=== PATIENT | female | born 1965 | race Caucasian/White ===

== ENCOUNTER 2017-01-01 12:38 | Inpatient (IN) | payer MEDICAID, OTHER ==
[~2017-01-01] VITALS: Ht 162.6 cm; Wt 62.3 kg
[2017-01-01] MEDS ORDERED: BECL8.7A6 IH (13:25)
[2017-01-01] MEDS ORDERED: QUET200T PO (13:25)
[2017-01-01] MEDS ORDERED: NICO21T TD (13:25)
[2017-01-01] MEDS ORDERED: BUPR75 PO (13:25)
[2017-01-01] MEDS ORDERED: FLUT16H NASAL (13:25)
[2017-01-01] MEDS ORDERED: QUET25TA PO (13:25)
[2017-01-01] MEDS ORDERED: ALBU8HFA IH (13:25)
[2017-01-01] MEDS ORDERED: SYMB8060 IH (13:25)
[2017-01-01] MEDS ORDERED: LAMO100 PO (13:25)
[2017-01-01] MEDS ORDERED: TIOT185 IH (13:25)
[2017-01-01] MEDS ORDERED: ALBU8HFA4 IH (13:25)
[2017-01-01] MEDS ORDERED: CLON.5 PO (13:25)
[2017-01-01 13:56] LABS: BASOPHILS % (AUTO) 0.6 % (0.0-2.0); EOSINOPHILS % (AUTO) 11.1 % (1.0-6.0); HEMATOCRIT 39.4 % (36-46); LYMPHOCYTES % (AUTO) 21.5 % (22.0-44.0); MEAN CORPUSCULAR HEMOGLOBIN 29.1 pg (26.0-34.0); MEAN CORPUSCULAR HGB CONC 32.9 G/dL (31.0-37.0); MEAN CORPUSCULAR VOLUME 89 fL (80-100); MONOCYTES # (AUTO) 0.5 K/uL (0.1-1.0); MONOCYTES % (AUTO) 5.7 % (2.0-9.0); NEUTROPHILS # (AUTO) 5.7 K/uL (1.8-7.7); NEUTROPHILS % (AUTO) 61.1 % (40.0-70.0); PLATELET COUNT (AUTO) 277 K/uL (150-450); RED BLOOD CELL COUNT(AUTO) 4.45 MIL/uL (4.00-5.20); RED CELL DISTRIBUTION WIDTH 13.9 % (11.5-14.5); WHITE BLOOD COUNT (AUTO) 9.3 K/uL (4.5-11.0)
[2017-01-01 14:00] LABS: ANION GAP 5 mmol/L (8-16); CARBON DIOXIDE 33 mmol/L (22-29); CHLORIDE 105 mmol/L (98-107); CREATININE 0.69 mg/dL (0.60-1.30); GLOMERULAR FILTR. RATE CALC > 60 mL/min (>60); POTASSIUM 3.8 mmol/L (3.5-5.1); SODIUM SERUM 143 mmol/L (136-145); UREA NITROGEN, BLOOD 14 mg/dL (7-18)
[2017-01-01 14:06] LABS: ALANINE AMINOTRANSFERASE 24 U/L (12-78); ALBUMIN 3.1 g/dL (3.4-5.0); ASPARTATE AMINOTRANSFERASE 20 U/L (15-37); BILIRUBIN,TOTAL 0.2 mg/dL (0.1-1.0); TOTAL PROTEIN, SERUM 6.7 g/dL (6.4-8.2)
[2017-01-01] MEDS ORDERED: MAGNESIUM HYDROXIDE SUSPENSION 30 ML UDCUP PO PRN (14:15)
[2017-01-01] MEDS ORDERED: ZOLPIDEM TARTRATE 10 MG TABLET PO PRN (14:15)
[2017-01-01] MEDS ORDERED: MAG HYDROX/AL HYDROX/SIMETH ES 30 ML SUSPENSION UDCUP PO PRN (14:15)
[2017-01-01] MEDS ORDERED: ACETAMINOPHEN 325 MG TABLET PO PRN (14:15)
[2017-01-01] MEDS ORDERED: LORazepam 2 MG TABLET PO PRN (14:15)
[2017-01-01] MEDS ORDERED: LORazepam 2 MG/ML VIAL IM ONE (20:30)
[2017-01-01] MEDS ORDERED: HALOPERIDOL LACTATE 5 MG/ML VIAL IM ONE (20:30)
[2017-01-01] MEDS ORDERED: DiphenhydrAMINE HCL 50 MG/ML VIAL IM ONE (20:30)
[2017-01-02 01:46] VITALS: BP 130/76
[2017-01-02] MEDS ORDERED: INFLUENZA VIRUS VACCINE QVS 2016-17 (3YR+)/PF 60 MCG/0.5 ML SYRINGE IM ONE (02:30)
[2017-01-02] MEDS ORDERED: PNEUMOCOCCAL VACCINE POLYVALENT 0.5 ML VIAL [PPSV23] IM ONE (02:30)
[2017-01-02] MEDS ORDERED: ALBUTEROL SULFATE HFA 90 MCG/PUFF 8 GM INHALER IH PRN (10:45)
[2017-01-02] MEDS ORDERED: IBUPROFEN 400 MG TABLET PO PRN (10:45)
[2017-01-02] MEDS ORDERED: ACETAMINOPHEN 325 MG TABLET PO PRN (10:45)
[2017-01-02] MEDS: BUDESONIDE/FORMOTEROL FUMARATE 80-4.5 MCG/PUFF 6.9 GM INHALER IH SCH (16:13)
[2017-01-02] MEDS: QUEtiapine FUMARATE 200 MG TABLET PO SCH (20:38)
[2017-01-03 07:11] VITALS: BP 121/68
[2017-01-03] MEDS: QUEtiapine FUMARATE 200 MG TABLET PO SCH ×2 (08:24→20:27)
[2017-01-03] MEDS: BuPROPion HCL XL 150 MG ER TABLET PO SCH (08:25)
[2017-01-03] MEDS: TIOTROPIUM BROMIDE 18 MCG/INH HANDIHALER [5] IH SCH (08:25)
[2017-01-03] MEDS: NICOTINE 21 MG/24 HOUR PATCH TD SCH (08:26)
[2017-01-03] MEDS: BUDESONIDE/FORMOTEROL FUMARATE 80-4.5 MCG/PUFF 6.9 GM INHALER IH SCH ×2 (08:27→17:03)
[2017-01-03 08:35] LABS: HEMOGLOBIN A1C 6.1 % (4.5-6.2)
[2017-01-03 08:51] LABS: CHOL/HDL RATIO 4.4 (3.9-5.7); THYROID STIMULATING HORMONE 0.7 uIU/mL (0.36-3.74)
[2017-01-03] MEDS ORDERED: NICOTINE 21 MG/24 HOUR PATCH TD ONE (09:00)
[2017-01-03] MEDS ORDERED: HALOPERIDOL LACTATE 5 MG/ML VIAL ONE (09:22)
[2017-01-03] MEDS ORDERED: LORazepam 2 MG/ML VIAL ONE (09:23)
[2017-01-03] MEDS ORDERED: DiphenhydrAMINE HCL 50 MG/ML VIAL ONE (09:23)
[2017-01-03] MEDS ORDERED: LORazepam 2 MG/ML VIAL IM ONE (09:45)
[2017-01-03] MEDS ORDERED: HALOPERIDOL LACTATE 5 MG/ML VIAL IM ONE (09:45)
[2017-01-03] MEDS ORDERED: DiphenhydrAMINE HCL 50 MG/ML VIAL IM ONE (09:45)
[2017-01-04] MEDS: BuPROPion HCL XL 150 MG ER TABLET PO SCH (08:16)
[2017-01-04] MEDS: TIOTROPIUM BROMIDE 18 MCG/INH HANDIHALER [5] IH SCH (08:17)
[2017-01-04] MEDS: QUEtiapine FUMARATE 200 MG TABLET PO SCH ×2 (08:17→20:09)
[2017-01-04] MEDS: BUDESONIDE/FORMOTEROL FUMARATE 80-4.5 MCG/PUFF 6.9 GM INHALER IH SCH ×2 (08:18→16:25)
[2017-01-04 08:20] VITALS: BP 121/67
[2017-01-04] MEDS ORDERED: NICOTINE 21 MG/24 HOUR PATCH TD ONE (09:00)
[2017-01-04] MEDS: NICOTINE 21 MG/24 HOUR PATCH TD SCH (10:41)
[2017-01-04] MEDS: HALOPERIDOL 5 MG TABLET PO PRN ×2 (10:41→16:15)
[2017-01-04] MEDS: ClonazePAM 0.5 MG TABLET PO SCH (10:53)
[2017-01-04] MEDS: DIVALPROEX SODIUM 500 MG DR TABLET PO SCH (16:15)
[2017-01-04 17:55] VITALS: BP 114/72
[2017-01-05 06:41] VITALS: BP 124/78
[2017-01-05] MEDS: NICOTINE 21 MG/24 HOUR PATCH TD SCH (08:03)
[2017-01-05] MEDS: BUDESONIDE/FORMOTEROL FUMARATE 80-4.5 MCG/PUFF 6.9 GM INHALER IH SCH ×2 (08:04→16:14)
[2017-01-05] MEDS: ClonazePAM 0.5 MG TABLET PO SCH (08:04)
[2017-01-05] MEDS: QUEtiapine FUMARATE 200 MG TABLET PO SCH ×2 (08:04→20:23)
[2017-01-05] MEDS: BuPROPion HCL XL 150 MG ER TABLET PO SCH (08:04)
[2017-01-05] MEDS: DIVALPROEX SODIUM 500 MG DR TABLET PO SCH ×2 (08:04→16:14)
[2017-01-05] MEDS: TIOTROPIUM BROMIDE 18 MCG/INH HANDIHALER [5] IH SCH (08:31)
[2017-01-05] MEDS ORDERED: NICOTINE 21 MG/24 HOUR PATCH TD ONE (09:00)
[2017-01-05 16:06] VITALS: BP 123/60
[2017-01-05] MEDS: HALOPERIDOL 5 MG TABLET PO PRN (17:28)
[2017-01-05] MEDS ORDERED: HydrOXYzine HCL 25 MG TABLET PO PRN (18:45)
[2017-01-05] MEDS ORDERED: SERTRALINE HCL 50 MG TABLET PO SCH (21:00)
[2017-01-06] MEDS: BUDESONIDE/FORMOTEROL FUMARATE 80-4.5 MCG/PUFF 6.9 GM INHALER IH SCH (08:58)
[2017-01-06] MEDS: DIVALPROEX SODIUM 500 MG DR TABLET PO SCH (08:58)
[2017-01-06] MEDS: TIOTROPIUM BROMIDE 18 MCG/INH HANDIHALER [5] IH SCH (08:58)
[2017-01-06] MEDS: QUEtiapine FUMARATE 200 MG TABLET PO SCH (08:58)
[2017-01-06] MEDS: BuPROPion HCL XL 150 MG ER TABLET PO SCH (08:58)
[2017-01-06] MEDS ORDERED: HydrOXYzine HCL 25 MG TABLET PO SCH (09:00)
[2017-01-06] MEDS ORDERED: NICOTINE 21 MG/24 HOUR PATCH TD SCH (09:00)
[2017-01-06] MEDS ORDERED: BUPR-93 PO ×2 (12:17→12:20)
[2017-01-06] MEDS ORDERED: DIVA250T45 PO (12:20)
[2017-01-06] MEDS ORDERED: DIVA500T52 PO (12:21)
[2017-01-06] MEDS ORDERED: SERT50TA12 PO (12:21)
== END 2017-01-06 15:26 | disposition home or self-care (01) | DRG 750 ==
LOC: EMS 12:39 → B3A 22:00 → 3EC 22:00 → B3A 01-04 09:40
PROVIDERS: ADMIT Psychiatry & Neurology Psychiatry; ATTEND Psychiatry & Neurology Psychiatry
DX: F25.0 Schizoaffective disorder, bipolar type (principal); J31.0 Chronic rhinitis; J45.909 Unspecified asthma, uncomplicated; Z28.21 Immunization not carried out because of patient refusal; Z79.51 Long term (current) use of inhaled steroids; Z79.899 Other long term (current) drug therapy; Z72.0 Tobacco use; Z90.49 Acquired absence of other specified parts of digestive tract
CPT/HCPCS: 83036; 84443; 96372; 99285; G0480; J1200; J1630; J2060